=== PATIENT | female | born 1990 | race African-American/Black ===

== ENCOUNTER 2023-03-04 02:57 | Emergency (ER) | payer OTHER ==
[2023-03-04 03:18] VITALS: BP 136/89; PULSE 86; RESP 18; TEMP 99.8; BMI 30.2
[2023-03-04 04:07] LABS: THROAT:GRP A STREP NOT DETECTED (NOTDETECTED)
== END 2023-03-04 05:09 | disposition home or self-care (01) ==
LOC: JER 02:57
DX: J09.X2 Influenza due to identified novel influenza A virus with other respiratory manifestations (principal); J02.9 Acute pharyngitis, unspecified; R05.1 Acute cough; R09.81 Nasal congestion; Z20.822 Contact with and (suspected) exposure to COVID-19
CPT/HCPCS: 0241U-QW; 36415; 86308; 87651; 99283-25